=== PATIENT | female | born 1940 | race American Indian/Alaskan Native ===

== ENCOUNTER 2022-05-28 10:58 | Outpatient (CLI) | payer MEDICARE ==
--- NOTE | 2022-05-29 10:35 | Electrocardiograph Report ---
[facility] Test Date: 2022-05-28 Test Time: 11:21:37 Pat Name: DORY MILLER Department: Room: Gender: F [employer]: KEN : 1940 Requested By: ELVIS GROVES Order Number: [id number] Reading MD: Donovan Schwartz Measurements Intervals [place] Rate: 60 P: 41 FL: 167 QRS: -9 QRSD: 87 T: -23 QT: 417 QTc: 416 Interpretive Statements Sinus rhythm Nonspecific T abnormalities, inferior leads No previous ECG available for comparison Electronically Signed On 05-29-2022 10:35:23 EDT by Donovan Schwartz
== END 2022-05-28 10:59 | disposition home or self-care (01) ==
LOC: CARD 10:58
PROVIDERS: ATTEND Internal Medicine
DX: I10 Essential (primary) hypertension (principal)
CPT/HCPCS: 93005